=== PATIENT | male | born 1980 | race African-American/Black ===

== ENCOUNTER → 2018-09-15 | Outpatient (CLI) | payer OTHER ==
--- NOTE | 2018-09-15 17:16 | XR ---
Lumbosacral spine HISTORY: Low back pain 5 views of the lumbosacral spine Lumbar vertebral bodies show preserved height, alignment, and bone mineralization. There is no eviden t spondylolysis or spondylolisthesis. Loss of disc height L4-5, L2-3. Anterior wedging T12 is mild. S clerosis present in the posterior elements of the lower lumbar spine. IMPRESSION: Degenerative disc disease and facet arthropathy. Anterior wedge compression deformity of T12 of questionable age, significance. Bone scan or MRI may be of benefit.
== END | disposition home or self-care (01) ==
LOC: RADXRMAIN 16:03
PROVIDERS: ATTEND Family Medicine
DX: M51.37 Other intervertebral disc degeneration, lumbosacral region (principal); M46.97 Unspecified inflammatory spondylopathy, lumbosacral region
CPT/HCPCS: 72110

== ENCOUNTER → 2018-10-24 | Outpatient (CLI) | payer OTHER | LOC: EDBD 10-23 11:45 → RADMRIMAIN 09:12 | PROVIDERS: ATTEND Family Medicine | DX: Z53.9 Procedure and treatment not carried out, unspecified reason (principal) ==

== ENCOUNTER → 2018-11-19 | Outpatient (CLI) | payer OTHER ==
--- NOTE | 2018-11-20 08:14 | CT ---
EXAMINATION TYPE: CT abdomen pelvis w con DATE OF EXAM: 11/19/2018 COMPARISON: None HISTORY: RUQ pain CT DLP: 3032.8 mGycm CONTRAST: CT scan of the abdomen and pelvis is performed with Oral Contrast and with IV Contrast, patient injec scott with 100 mL of Isovue 300. FINDINGS: LUNG BASES-: No visible nodule. No infiltrate. LIVER/GB: No calcified gallstones. No space occupying hepatic lesion. Biliary tree is of normal ca liber. PANCREAS: No inflammation. No distinct mass. SPLEEN: No splenic enlargement. No lesion seen. ADRENALS: No nodule. No thickening. KIDNEYS/BLADDER: No hydronephrosis. No nephrolithiasis. No distinct renal mass. Urinary bladder g rossly unremarkable. BOWEL: Normal appendix. Normal bowel caliber. No inflammation. GENITAL ORGANS: No gross abnormality. LYMPH NODES: 4 mildly prominent lymph nodes right lower quadrant small bowel mesentery measuring up t o 1.2 cm. 9 mm peripancreatic lymph node identified. AORTA: No significant abnormality. OSSEOUS STRUCTURES: No significant abnormality is seen. OTHER: No significant additional abnormality is seen. IMPRESSION: 1. No significant abnormality to account for the patient's symptoms. 2. Mildly prominent right lower quadrant lymph nodes are nonspecific.
== END | disposition home or self-care (01) ==
LOC: RADCTMAIN 15:11
PROVIDERS: ATTEND Family Medicine
DX: R59.0 Localized enlarged lymph nodes (principal); R10.11 Right upper quadrant pain
CPT/HCPCS: 74177; Q9967

== ENCOUNTER → 2018-12-11 | Outpatient (CLI) | payer OTHER ==
--- NOTE | 2018-12-11 12:13 | XR ---
EXAMINATION TYPE: XR chest 2V DATE OF EXAM: 12/11/2018 COMPARISON: NONE TECHNIQUE: PA and lateral views submitted. HISTORY: Pain FINDINGS: The lungs are clear and there is no pneumothorax, pleural effusion, or focal pneumonia. Positioning is somewhat apical lordotic with hypertrophic change of the spine and degenerative disc disease. IMPRESSION: 1. No acute process.
--- NOTE | 2018-12-11 14:10 | US ---
EXAMINATION TYPE: US abdomen complete DATE OF EXAM: 12/11/2018 COMPARISON: CT 2018 CLINICAL HISTORY: R10.9FLANK PAIN,R10.11 abdominal pain. Intermittent sharp RUQ pain EXAM MEASUREMENTS: Liver Length: 18.6 cm Gallbladder Wall: 0.2 cm CBD: 0.4 cm Spleen: 11.1 cm Right Kidney: 11.1 x 6.3 x 6.0 cm Left Kidney: 12.0 x 6.4 x 6.4 cm Difficult and limited study due to patient body habitus Pancreas: obscured by overlying midline bowel gas Liver: enlarged, heterogeneous, attenuating Gallbladder: wnl Evidence for sonographic Boyce's sign: no CBD: visualized portions wnl, limited by overlying bowel gas Spleen: wnl Right Kidney: wnl Left Kidney: wnl Upper IVC: wnl Abd Aorta: visualized portions wnl, limited by overlying midline bowel gas Kidneys show normal cortical medullary differentiation. No ascites. The liver is poorly penetrated by the ultrasound. The intrahepatic portion of the IVC and proximal a bdominal aorta are within normal limits. There is no evidence of cholelithiasis. Common bile duct i s unremarkable. The visualized portions of the pancreas are homogenous. The spleen is unremarkable. Kidneys are symmetric and free of hydronephrosis. No renal lesions are seen. IMPRESSION: Somewhat limited exam. Probable hepatic steatosis. Suspect hepatomegaly.
== END | disposition home or self-care (01) ==
LOC: RADUSWWP 10:46
PROVIDERS: ATTEND Family Medicine
DX: R10.11 Right upper quadrant pain (principal); R10.9 Unspecified abdominal pain
CPT/HCPCS: 71046; 76700

== ENCOUNTER → 2019-12-29 | Outpatient (CLI) | payer OTHER ==
--- NOTE | 2019-12-29 21:16 | XR ---
EXAMINATION TYPE: XR lumbar spine 2 or 3V DATE OF EXAM: 12/29/2019 CLINICAL HISTORY: Low back pain. TECHNIQUE: Frontal and lateral images of the lumbar spine are obtained. COMPARISON: Lumbar spine x-ray September 15, 2018 FINDINGS: There are 5 lumbar type vertebral bodies redemonstrated. There is redemonstration of mild anterior wedging T11 and T12 vertebra with mild to moderate anterior spurring. Mild to moderate disc space narrowing L4-L5 level slightly more prominent from prior study. Alignment stable and satisfacto ry. Overlying soft tissue is unremarkable. IMPRESSION: As above.
--- NOTE | 2019-12-29 21:20 | XR ---
EXAMINATION TYPE: XR Hip Bilateral Complete, XR femur bilateral DATE OF EXAM: 12/29/2019 CLINICAL HISTORY: Bilateral hip and femur pain. TECHNIQUE: AP and frogleg views of the bilateral hips and femurs are obtained. COMPARISON: None. FINDINGS: There is no acute fracture/dislocation evident in either hip. The joint space in the bila teral hips are maintained with mild spurring superior lateral aspect bilaterally. Right hip shows a 11 mm linear shaped bony fragment without donor site could reflect heterotopic ossification or produc t of old trauma. No suspicious focal osseous lesion bilaterally. The overlying soft tissue appears un remarkable bilaterally. 2 views of bilateral femurs show mild to moderate joint space loss and spurring medial and lateral ti biofemoral compartments in the bilateral knees most prominent right medial tibiofemoral compartment. Patellofemoral compartments are maintained bilaterally. Bilateral large posterior oval bony densities or probable multiple fabellas. Remainder of bilateral femurs shows no fracture or dislocation or esther picious lytic or sclerotic lesions. Overlying soft tissue is unremarkable bilaterally. IMPRESSION: As above.
== END | disposition home or self-care (01) ==
LOC: RAD 17:18
PROVIDERS: ATTEND Family Medicine
DX: M99.73 Connective tissue and disc stenosis of intervertebral foramina of lumbar region (principal); M76.9 Unspecified enthesopathy, lower limb, excluding foot
CPT/HCPCS: 72100; 73521

== ENCOUNTER 2023-09-07 21:52 | Emergency (ER) | payer OTHER ==
[2023-09-07 22:20] VITALS: BP 155/93; PULSE 86; RESP 18; TEMP 98.5
--- NOTE | 2023-09-07 23:16 | ED ---
General Adult HPI - General Chief complaint: Recheck/Abnormal Lab/Rx Stated complaint: COVID Test Time Seen by Provider: 09/07/23 21:55 Source: patient, RN notes reviewed, old records reviewed Mode of arrival: ambulatory Limitations: no limitations - History of Present Illness Initial comments: 43-year-old male presenting with request for coronavirus test. Patient states he's been exposed to several people at his work with coronavirus. He denies symptoms. Requesting test. - Related Data Allergies Allergy/AdvReac Type Severity Reaction Status Date / Time No Known Allergies Allergy Verified 09/07/23 22:04 Review of Systems ROS Statement: Those systems with pertinent positive or pertinent negative responses have been documented in the HPI. ROS Other: All systems not noted in ROS Statement are negative. Past Medical History Past Medical History: Hyperlipidemia, Hypertension History of Any Multi-Drug Resistant Organisms: None Reported Past Surgical History: No Surgical Hx Reported Past Psychological History: No Psychological Hx Reported Smoking Status: Never smoker Past Alcohol Use History: Occasional Past Drug Use History: Marijuana General Exam Limitations: no limitations General appearance: alert, in no apparent distress Head exam: Present: atraumatic, normocephalic Eye exam: Present: normal appearance, PERRL ENT exam: Present: normal exam Neck exam: Present: normal inspection. Absent: tenderness, meningismus Respiratory exam: Present: normal lung sounds bilaterally. Absent: respiratory distress, wheezes Cardiovascular Exam: Present: regular rate, normal rhythm GI/Abdominal exam: Present: soft. Absent: distended, tenderness, guarding Extremities exam: Present: normal inspection, normal capillary refill. Absent: pedal edema Neurological exam: Present: alert, oriented X3, CN II-XII intact, normal gait. Absent: motor sensory deficit Psychiatric exam: Present: normal affect, normal mood Skin exam: Present: warm, dry, intact. Absent: cyanosis, diaphoretic Course Vital Signs 09/07/23 22:03 Temperature 98.5 F Pulse Rate 86 Respiratory 18 Rate Blood Pressure 155/93 O2 Sat by Pulse 99 Oximetry Medical Decision Making - Medical Decision Making Was pt. sent in by a medical professional or institution (, PA, COMMUNITY DEVELOPMENT COORDINATOR, urgent care, hospital, or correction...) When possible be specific @ -No Did you speak to anyone other than the patient for history (EMS, parent, family, police, friend...)? What history was obtained from this source @ -No Did you review nursing and triage notes (agree or disagree)? Why? @ -I reviewed and agree with nursing and triage notes Were old charts reviewed (outside hosp., previous admission, EMS record, old EKG, old radiological studies, urgent care reports/EKG's, correction records)? Report findings @ -No old charts were reviewed Differential Diagnosis (chest pain, altered mental status, abdominal pain women, abdominal pain men, vaginal bleeding, weakness, fever, dyspnea, syncope, headache, dizziness, GI bleed, back pain, seizure, CVA, palpatations, mental health, musculoskeletal)? @Coronavirus testing EKG interpreted by me (3pts min.). @ -As above X-rays interpreted by me (1pt min.). @ -None done CT interpreted by me (1pt min.). @ -None done U/S interpreted by me (1pt. min.). @ -None done What testing was considered but not performed or refused? (CT, X-rays, U/S, labs)? Why? @ -None What meds were considered but not given or refused? Why? @ -None Did you discuss the management of the patient with other professionals (professionals i.e. , PA, COMMUNITY DEVELOPMENT COORDINATOR, lab, RT, psych nurse, social director, top executive, teacher, aoc operations intelligence officer, case management assistant)? Give summary @ -No Was smoking cessation discussed for >3mins.? @ -No Was critical care preformed (if so, how long)? @ -No Were there social determinants of health that impacted care today? How? (Homele ssness, low income, unemployed, alcoholism, drug addiction, transportation, low edu. Level, literacy, decrease access to med. care, custodial, rehab)? @ -No Was there de-escalation of care discussed even if they declined (Discuss DNR or withdrawal of care, Hospice)? DNR status @ -No What co-morbidities impacted this encounter? (DM, HTN, Smoking, COPD, CAD, Cancer, CVA, ARF, Chemo, Hep., AIDS, mental health diagnosis, sleep apnea, morbid obesity)? @ -None Was patient admitted / discharged? Hospital course, mention meds given and route, prescriptions, significant lab abnormalities, going to OR and other pertinent info. @ -Asymptomatic 43-year-old male with request for coronavirus testing. Test is negative. Undiagnosed new problem with uncertain prognosis? @ -No Drug Therapy requiring intensive monitoring for toxicity (Heparin, Nitro, Insulin, Cardizem)? @ -No Were any procedures done? @ -No Diagnosis/symptom? @ -Well exam Acute, or Chronic, or Acute on Chronic? @ -Acute Uncomplicated (without systemic symptoms) or Complicated (systemic symptoms)? @ -default Side effects of treatment? @ -No Exacerbation, Progression, or Severe Exacerbation? @ -No Poses a threat to life or bodily function? How? (Chest pain, [place], [place], pneumonia, PE, COPD, DKA, ARF, appy, cholecystitis, CVA, Diverticulitis, Homicidal, Suicidal, threat to staff... and all critical care pts) @ -No Disposition Clinical Impression: Well adult exam Disposition: HOME SELF-CARE Condition: Good Additional Instructions: Your coronavirus testing is negative. Is patient prescribed a controlled substance at d/c from ED?: No Referrals: Hayde Valdovinos MD [Primary Care Provider] - 1-2 days Time of Disposition: 23:16
== END 2023-09-07 23:37 | disposition home or self-care (01) ==
LOC: EC 21:52
DX: Z00.00 Encounter for general adult medical examination without abnormal findings (principal); I10 Essential (primary) hypertension; F12.90 Cannabis use, unspecified, uncomplicated; Z20.822 Contact with and (suspected) exposure to COVID-19
CPT/HCPCS: 87635; 99283

== ENCOUNTER 2024-04-23 23:17 | Emergency (ER) | payer OTHER ==
[2024-04-24 01:15] VITALS: TEMP 98
[2024-04-24] MEDS: AMOXIC-POT CLAV 875-125MG 1 EACH TAB PO STA (01:30)
[2024-04-24] MEDS: KETOROLAC 15 MG/ML 1 ML VIAL IM STA (01:30)
[2024-04-24] MEDS: SULFAMETHOX-TMP 800-160MG 1 EACH TAB PO STA (01:30)
[2024-04-24] MEDS: ACETAMINOPHEN TAB 500 MG TAB PO STA (01:30)
--- NOTE | 2024-04-24 02:21 | ED ---
Eye Problem HPI - General Chief complaint: Eye Problems Stated complaint: Left eye pain Time Seen by Provider: 04/23/24 23:44 Source: patient Mode of arrival: ambulatory Limitations: no limitations - History of Present Illness Initial comments: 43-year-old male presented to the ED with complaints of left eye pain. Patient reports that this has been going on for the past week. However tonight pain worse especially with eye movements. No fever or chills. Denies loss of vision. No chest pain or shortness of breath. Does not wear contacts. No othe r complaints at this time. - Related Data Previous Rx's Medication Instructions Recorded Acetaminophen Tab [Tylenol] 500 mg PO Q6H #30 tablet 04/24/24 Amoxic-Pot Clav 875-125Mg 1 tab PO Q12HR 7 Days #14 tab 04/24/24 [Augmentin 875-125] Ibuprofen [Motrin] 800 mg PO Q6HR #30 tab 04/24/24 Sulfamethox-Tmp 800-160Mg [Bactrim 1 each PO Q12HR 7 Days #14 tab 04/24/24 Ds] Allergies Allergy/AdvReac Type Severity Reaction Status Date / Time No Known Allergies Allergy Verified 04/23/24 23:31 Review of Systems ROS Statement: Those systems with pertinent positive or pertinent negative responses have been documented in the HPI. ROS Other: All systems not noted in ROS Statement are negative. Past Medical History Past Medical History: Hyperlipidemia, Hypertension History of Any Multi-Drug Resistant Organisms: None Reported Past Surgical History: No Surgical Hx Reported Past Psychological History: No Psychological Hx Reported Smoking Status: Never smoker Past Alcohol Use History: Occasional Past Drug Use History: Marijuana General Exam Limitations: no limitations General appearance: alert, in no apparent distress Eye exam: Present: periorbital swelling, periorbital tenderness, other (Left eye shows intact extraocular motions however patient does report pain on extraocular motions. No entrapment. Does show some proptosis.) Respiratory exam: Present: normal lung sounds bilaterally Cardiovascular Exam: Present: regular rate GI/Abdominal exam: Present: soft Neurological exam: Present: alert, oriented X3 Skin exam: Present: warm, dry Course Vital Signs 04/23/24 23:29 Temperature 98 F Pulse Rate 90 Respiratory 18 Rate Blood Pressure 166/95 O2 Sat by Pulse 99 Oximetry Medical Decision Making - Medical Decision Making was pt. sent in by a medical professional or institution (JINNY Wilder, BENCH BORING MACHINE OPERATOR, urgent care, hospital, or retirement...) When possible be specific @ -No Did you speak to anyone other than the patient for history (EMS, parent, family, police, friend...)? What history was obtained from this source @ -No Did you review nursing and triage notes (agree or disagree)? Why? @ -I reviewed and agree with nursing and triage notes Were old charts reviewed (outside hosp., previous admission, EMS record, old EKG, old radiological studies, urgent care reports/EKG's, retirement records)? Report findings @ -No old charts were reviewed Differential Diagnosis (chest pain, altered mental status, abdominal pain women, abdominal pain men, vaginal bleeding, weakness, fever, dyspnea, syncope, he adache, dizziness, GI bleed, back pain, seizure, CVA, palpatations, mental health, musculoskeletal)? @ -Periorbital cellulitis, orbital cellulitis, cellulitis. This not meant to be an all-inclusive list. EKG interpreted by me (3pts min.). @ -None X-rays interpreted by me (1pt min.). @ -None done CT interpreted by me (1pt min.). @ -None done U/S interpreted by me (1pt. min.). @ -None done What testing was considered but not performed or refused? (CT, X-rays, U/S, labs)? Why? @ -Labs and imaging were considered however at this time patient would not like to have any further testing done. What meds were considered but not given or refused? Why? @ -None Did you discuss the management of the patient with other professionals (professionals i.e. JINNY Wilder, BENCH BORING MACHINE OPERATOR, lab, RT, psych nurse, social work lecturer, staff field engineer, teacher, medical officer psychiatry, pillowcase folder)? Give summary @ -No Was smoking cessation discussed for >3mins.? @ -No Was critical care preformed (if so, how long)? @ -No Were there social determinants of health that impacted care today? How? (Homelessness, low income, unemployed, alcoholism, drug addiction, transportation, low edu. Level, literacy, decrease access to med. care, halfway, rehab)? @ -No Was there de-escalation of care discussed even if they declined (Discuss DNR or withdrawal of care, Hospice)? DNR status @ -No What co-morbidities impacted this encounter? (DM, HTN, Smoking, COPD, CAD, Cancer, CVA, ARF, Chemo, Hep., AIDS, mental health diagnosis, sleep apnea, morbid obesity)? @ -None Was patient admitted / discharged? Hospital course, mention meds given and route, prescriptions, significant lab abnormalities, going to OR and other pertinent info. @ -Discharge 43-year-old male presenting to the ED with complaints of left eye pain and swelling for the past week however worsening tonight especially having pain with eye movements. No visual losses. Patient declined visual acuity. I am concerned of an orbital cellulitis. However at this time patient would not like to have CT testing or laboratory studies performed. He would like antibiotics and to be discharged home. Discussed risk and benefits of this and patient would still like to have no further testing done. Discharged home in stable condition. Provided first dose of Augmentin and Bactrim here. Provided starter packs for Augmentin and Bactrim and provided prescriptions for Augmentin, Bactrim, Motrin, Tylenol. Also provided referral to see ophthalmology. Discussed tricked return precautions with patient who verbalized agreement. Undiagnosed new problem with uncertain prognosis? @ -No Drug Therapy requiring intensive monitoring for toxicity (Heparin, Nitro, Insulin, Cardizem)? @ -No Were any procedures done? @ -No Diagnosis/symptom? @ -Periorbital Cellulitis Acute, or Chronic, or Acute on Chronic? @ -Acute Uncomplicated (without systemic symptoms) or Complicated (systemic symptoms)? @ -Complicated Side effects of treatment? @ -No Exacerbation, Progression, or Severe Exacerbation? @ -No Poses a threat to life or bodily function? How? (Chest pain, [place], [place], pneumonia, PE, COPD, DKA, ARF, appy, cholecystitis, CVA, Diverticulitis, Homicidal, Suicidal, threat to staff... and all critical care pts) @ -Possibly Disposition Clinical Impression: Periorbital cellulitis of left eye Disposition: HOME SELF-CARE Condition: Good Instructions (If sedation given, give patient instructions): Periorbital Cellulitis in Adults (ED) Additional Instructions: Please return to the Emergency Department if symptoms worsen or any other concerns. Please take antibiotics as prescribed. Follow-up with ophthalmology within the next few days. Prescriptions: Amoxic-Pot Clav 875-125Mg [Augmentin 875-125] 1 tab PO Q12HR 7 Days #14 tab Sulfamethox-Tmp 800-160Mg [Bactrim Ds] 1 each PO Q12HR 7 Days #14 tab Ibuprofen [Motrin] 800 mg PO Q6HR #30 tab Acetaminophen Tab [Tylenol] 500 mg PO Q6H #30 tablet Is patient prescribed a controlled substance at d/c from ED?: No Referrals: Hayde Valdovinos MD [Primary Care Provider] - 1-2 days Sunita Saleh MD [STAFF PHYSICIAN] - 1-2 days Hemanth Laird MD [STAFF PHYSICIAN] - 1-2 days Time of Disposition: 02:28
[2024-04-24] MEDS: AMOXIC-POT CLAV 875MG STARTER PACK 2 TAB BTL PO STA (02:32)
[2024-04-24] MEDS: SULFAMETH-TMP DS STARTER PACK 2 TAB BTL PO STA (02:32)
[2024-04-24 03:05] VITALS: BP 146/81; PULSE 81; RESP 20
== END 2024-04-24 02:40 | disposition home or self-care (01) ==
LOC: EC 23:17
DX: L03.213 Periorbital cellulitis (principal); F12.90 Cannabis use, unspecified, uncomplicated
CPT/HCPCS: 99283; 96372; J1885

== ENCOUNTER 2024-04-26 18:36 | Emergency (ER) | payer OTHER ==
--- NOTE | 2024-04-26 18:57 | ED ---
Recheck HPI - General Chief Complaint: Eye Problems Stated Complaint: L Eye Problem Source: patient, RN notes reviewed, old records reviewed Mode of arrival: ambulatory Limitations: no limitations - History of Present Illness Initial Comments: This is a 43-year-old male to the ER for evaluation today. Patient is severely upset course of treatment recent diagnosis of eye infection given oral antibiotics with no improvement. Patient states he is taking these oral antibiotics as directed he is here today because he did not get eyedrops for his eye. Patient has severe pain in his left eye noticed vision changes and no pain to touch MD Complaint: other -: days(s) Returns Today for: persistent/worsening pain related to initial visit Context: planned re-check Associated Symptoms: none Treatments Prior to Arrival: other (0) - Related Data Previous Rx's Medication Instructions Recorded Acetaminophen Tab [Tylenol] 500 mg PO Q6H #30 tablet 04/24/24 Amoxic-Pot Clav 875-125Mg 1 tab PO Q12HR 7 Days #14 tab 04/24/24 [Augmentin 875-125] Ibuprofen [Motrin] 800 mg PO Q6HR #30 tab 04/24/24 Sulfamethox-Tmp 800-160Mg [Bactrim 1 each PO Q12HR 7 Days #14 tab 04/24/24 Ds] Allergies Allergy/AdvReac Type Severity Reaction Status Date / Time No Known Allergies Allergy Verified 04/23/24 23:31 Review of Systems ROS Statement: Those systems with pertinent positive or pertinent negative responses have been documented in the HPI. ROS Other: All systems not noted in ROS Statement are negative. Past Medical History Past Medical History: Hyperlipidemia, Hypertension History of Any Multi-Drug Resistant Organisms: None Reported Past Surgical History: No Surgical Hx Reported Past Psychological History: No Psychological Hx Reported Smoking Status: Never smoker Past Alcohol Use History: Occasional Past Drug Use History: Marijuana General Exam Limitations: no limitations General appearance: alert, in no apparent distress Head exam: Present: atraumatic, normocephalic, normal inspection Eye exam: Present: normal appearance, PERRL, EOMI, conjunctival injection, periorbital swelling. Absent: scleral icterus ENT exam: Present: normal exam, mucous membranes moist Neck exam: Present: normal inspection. Absent: tenderness, meningismus, lymphadenopathy Respiratory exam: Present: normal lung sounds bilaterally. Absent: respiratory distress, wheezes, rales, rhonchi, stridor Cardiovascular Exam: Present: regular rate, normal rhythm, normal heart sounds. Absent: systolic murmur, diastolic murmur, rubs, gallop, clicks GI/Abdominal exam: Present: soft, normal bowel sounds. Absent: distended, tenderness, guarding, rebound, rigid Extremities exam: Present: normal inspection, full ROM, normal capillary refill. Absent: tenderness, pedal edema, joint swelling, calf tenderness Back exam: Present: normal inspection Neurological exam: Present: alert, oriented X3, CN II-XII intact Psychiatric exam: Present: normal affect, normal mood Skin exam: Present: warm, dry, intact, normal color. Absent: rash Course Vital Signs 04/26/24 18:38 Temperature 98.4 F Pulse Rate 83 Respiratory 20 Rate Blood Pressure 167/93 O2 Sat by Pulse 98 Oximetry - Reevaluation(s) Reevaluation #1: 04/26/24 18:56 Record is reviewed Reevaluation #2: 04/26/24 18:56 Patient symptoms unchanged Reevaluation #3: 04/26/24 18:56 Patient informed of results questions answered Reevaluation #4: Was pt. sent in by a medical professional or institution (, PA, DYNAMITER, urgent care, hospital, or fdc...) When possible be specific @ -no Did you speak to anyone other than the patient for history (EMS, parent, family, police, friend...)? What history was obtained from this source @ -no Did you review nursing and triage notes (agree or disagree)? Why? @ -agree Are old charts reviewed (outside hosp., previous admission, EMS record, old EKG, old radiological studies, urgent care reports/EKG's, fdc records)? Report findings @ -yes Differential Diagnosis (chest pain, altered mental status, abdominal pain women, abdominal pain men, vaginal bleeding, weakness, fever, dyspnea, syncope, headache, dizziness, GI bleed, back pain, seizure, CVA, palpatations, mental health, musculoskeletal)? @ -prior EKG interpreted by me (3pts min.). @ -no X-rays interpreted by me (1pt min.). @ -no CT interpreted by me (1pt min.). @ -no U/S interpreted by me (1pt. min.). @ -no What testing was considered but not performed or refused? (CT, X-rays, U/S, labs)? Why? @ -none What meds were considered but not given or refused? Why? @ -none Did you discuss the management of the patient with other professionals (professionals i.e. , PA, DYNAMITER, lab, RT, psych nurse, clinical social work therapist, trash man, teacher, commanding officer traffic division, home health care case manager)? Give summary @ -no Was smoking cessation discussed for >3mins.? @ -no Was critical care preformed (if so, how long)? @ -no Were there social determinants of health that impacted care today? How? (Homelessness, low income, unemployed, alcoholism, drug addiction, transportation, low edu. Level, literacy, decrease access to med. care, fdc, rehab)? @ -none Was there de-escalation of care discussed even if they declined (Discuss DNR or withdrawal of care, Hospice)? DNR status @ -no What co-morbidities impacted this encounter? (DM, HTN, Smoking, COPD, CAD, Cancer, CVA, ARF, Chemo, Hep., AIDS, mental health diagnosis, sleep apnea, morbid obesity)? @ -none Was patient admitted / discharged? Hospital course, mention meds given and route, prescriptions, significant lab abnormalities, going to OR and other pertinent info. @ - 43 male to ER for evaluation of bacterial conjunctivitis of the left eye. Patient placed on antibiotic drops and can be discharged home Discharge Undiagnosed new problem with uncertain prognosis? @ -no Drug Therapy requiring intensive monitoring for toxicity (Heparin, Nitro, Insulin, Cardizem)? @ -no Were any procedures done? @ -no Diagnosis/symptom? @ -Cellulitis of the left eye periorbital cellulitis with bacterial conjunctivitis Acute, or Chronic, or Acute on Chronic? @ -Acute Uncomplicated (without systemic symptoms) or Complicated (systemic symptoms)? @ -Complicated Side effects of treatment? @ -no Exacerbation, Progression, or Severe Exacerbation? @ -exacerbation Poses a threat to life or bodily function? How? (Chest pain, [place], [place], pneumonia, PE, COPD, DKA, ARF, appy, cholecystitis, CVA, Diverticulitis, Homicidal, Suicidal, threat to staff... and all critical care pts) @ -yes significant cellulitis conjunctivitis of the left eye Medical Decision Making - Medical Decision Making 43 male to ER for evaluation of bacterial conjunctivitis of the left eye. Patient placed on antibiotic drops and can be discharged home Disposition Clinical Impression: Bacterial conjunctivitis, Periorbital cellulitis of left eye Disposition: HOME SELF-CARE Condition: Undetermined Instructions (If sedation given, give patient instructions): Conjunctivitis (ED), Periorbital Cellulitis in Adults (ED) Is patient prescribed a controlled substance at d/c from ED?: No Referrals: Hayde Valdovinos MD [Primary Care Provider] - 1-2 days Time of Disposition: 19:00
[2024-04-26 19:15] VITALS: BP 167/93; PULSE 83; RESP 20; TEMP 98.4
[2024-04-26] MEDS: POLYMYXIN B-TRIMETHOPRIM SULF (10,000-1) OPHTH DROPS 10 ML BTL LEFT EYE STA (19:35)
== END 2024-04-26 19:43 | disposition home or self-care (01) ==
LOC: EC 18:36
DX: L03.213 Periorbital cellulitis (principal); H10.89 Other conjunctivitis
CPT/HCPCS: 99283

== ENCOUNTER → 2024-05-10 | Outpatient (CLI) | payer OTHER ==
--- NOTE | 2024-05-10 10:19 | XR ---
EXAMINATION TYPE: XR chest 2V DATE OF EXAM: 05/10/2024 COMPARISON: 12/11/2018 HISTORY: Chest pain TECHNIQUE: Frontal and lateral views of the chest are obtained. FINDINGS: There is no focal air space opacity. No evidence for pneumothorax. No pleural effusion. The cardiac silhouette size is within normal limits. The osseous structures are grossly intact. IMPRESSION: 1. No acute cardiopulmonary process.
[2024-05-10 19:16] LABS: Rheumatoid Factor, Qnt 15 IU/mL (0-15)
[2024-05-10 19:57] LABS: Hepatitis A Antibody IgM Nonreactive (Nonreactive); Hepatitis B Core IgM Nonreactive (Nonreactive); Hepatitis B Surface Antigen Nonreactive (Nonreactive); Hepatitis C IgG Antibody Nonreactive (Nonreactive)
[2024-05-10 21:15] LABS: HIV 2 AB Non-Reactive (Non-Reactive); HIV AB P24 Non-Reactive (Non-Reactive); HIV P24 AG Non-Reactive (Non-Reactive)
[2024-05-11 08:34] LABS: HLA B27 NEGATIVE
[2024-05-11 09:02] LABS: Angiotensin-1 Converting Enz. 13 U/L (8-52)
[2024-05-11 14:23] LABS: C-ANCA <1:20 Titer (<1:20)
== END | disposition home or self-care (01) ==
LOC: RADXRMAIN 09:35
PROVIDERS: ATTEND Ophthalmology
DX: D86.9 Sarcoidosis, unspecified (principal)
CPT/HCPCS: 71046; 80074; 82164; 85549; 85652; 86038; 86140; 86255; 86431; 86618; 86780; 86812; 87390

== ENCOUNTER 2024-12-19 11:40 | Emergency (ER) | payer OTHER ==
--- NOTE | 2024-12-19 12:03 | ED ---
Back Pain HPI - General Chief Complaint: Back Pain/Injury Stated Complaint: back pain Time Seen by Provider: 12/19/24 11:48 Source: patient Limitations: no limitations - History of Present Illness Initial Comments: 44-year-old male presenting with chief complaint of lower back pain. Pain is primarily on the right side of the lower back. He does have some radiation down the leg and around the hip as well. He states that he did strain his back about 2 weeks ago, and then the other day he started to slip and caught himself and this aggravated the pain in his back. No loss of bowel or bladder control or saddle paresthesia. He has been smoking marijuana for pain control and this has been less effective recently. He does have some pain on the side of his abdomen. No dysuria or hematuria. No fevers or chills. No nausea or vomiting. - Related Data Previous Rx's Medication Instructions Recorded Acetaminophen Tab [Tylenol] 500 mg PO Q6H #30 tablet 04/24/24 Amoxic-Pot Clav 875-125Mg 1 tab PO Q12HR 7 Days #14 tab 04/24/24 [Augmentin 875-125] Ibuprofen [Motrin] 800 mg PO Q6HR #30 tab 04/24/24 Sulfamethox-Tmp 800-160Mg [Bactrim 1 each PO Q12HR 7 Days #14 tab 04/24/24 Ds] Cyclobenzaprine [Flexeril] 10 mg PO TID PRN #15 tab 12/19/24 Allergies Allergy/AdvReac Type Severity Reaction Status Date / Time No Known Allergies Allergy Verified 12/19/24 11:44 Review of Systems ROS Statement: Those systems with pertinent positive or pertinent negative responses have been documented in the HPI. ROS Other: All systems not noted in ROS Statement are negative. Past Medical History Past Medical History: Hyperlipidemia, Hypertension History of Any Multi-Drug Resistant Organisms: None Reported Past Surgical History: No Surgical Hx Reported Past Psychological History: No Psychological Hx Reported Smoking Status: Vaper Past Alcohol Use History: Occasional Past Drug Use History: Marijuana General Exam Limitations: no limitations General appearance: alert, in no apparent distress Head exam: Present: atraumatic, normocephalic, normal inspection Eye exam: Present: normal appearance, EOMI Neck exam: Present: normal inspection. Absent: meningismus Respiratory exam: Absent: respiratory distress Cardiovascular Exam: Present: regular rate Back exam: Present: normal inspection, paraspinal tenderness Neurological exam: Present: alert, oriented X3 Psychiatric exam: Present: normal affect, normal mood Skin exam: Present: warm, dry Course Vital Signs 12/19/24 12/19/24 11:42 14:23 Temperature 98.3 F 98.1 F Pulse Rate 96 75 Respiratory 16 18 Rate Blood Pressure 125/88 126/84 O2 Sat by Pulse 98 97 Oximetry Medical Decision Making - Medical Decision Making Was pt. sent in by a medical professional or institution (, PA, FLORIST HELPER, urgent care, hospital, or snf...) When possible be specific @ -No Did you speak to anyone other than the patient for history (EMS, parent, family, police, friend...)? What history was obtained from this source @ -No Did you review nursing and triage notes (agree or disagree)? Why? @ -I reviewed and agree with nursing and triage notes Were old charts reviewed (outside hosp., previous admission, EMS record, old EKG, old radiological studies, urgent care reports/EKG's, snf records)? Report findings @ -No old charts were reviewed Differential Diagnosis (chest pain, altered mental status, abdominal pain women, abdominal pain men, vaginal bleeding, weakness, fever, dyspnea, syncope, headache, dizziness, GI bleed, back pain, seizure, CVA, palpatations, mental health, musculoskeletal)? @ - MDM Differential Back Pain: Strain, zoster, cauda equina syndrome, epidural abscess, vertebral osteomyelitis, discitis, fracture, subluxation, disc herniation, DJD, spinal stenosis, dissection, AAA, pancreatitis, peptic ulcer disease, pyelonephritis, kidney stone this is not meant to be an all-inclusive list. EKG interpreted by me (3pts min.). @ -As above X-rays interpreted by me (1pt min.). @ -X-ray shows no acute fracture. Mild multilevel disc degeneration. Grade 1 anterolisthesis of L4 and L5. Wedging of the vertebral bodies at T11-T12 which is similar to prior in 2019 CT interpreted by me (1pt min.). @ -None done U/S interpreted by me (1pt. min.). @ -None done What testing was considered but not performed or refused? (CT, X-rays, U/S, labs)? Why? @ -None What meds were considered but not given or refused? Why? @ -None Did you discuss the management of the patient with other professionals (professionals i.e. , PA, FLORIST HELPER, lab, RT, psych nurse, child welfare social worker, centerless grinder tender, teacher, guest relation officer, caseworker)? Give summary @ -No Was smoking cessation discussed for >3mins.? @ -No Was critical care preformed (if so, how long)? @ -No Were there social determinants of health that impacted care today? How? (Homelessness, low income, unemployed, alcoholism, drug addiction, transportation, low edu. Level, literacy, decrease access to med. care, usp, rehab)? @ -No Was there de-escalation of care discussed even if they declined (Discuss DNR or withdrawal of care, Hospice)? DNR status @ -No What co-morbidities impacted this encounter? (DM, HTN, Smoking, COPD, CAD, Cancer, CVA, ARF, Chemo, Hep., AIDS, mental health diagnosis, sleep apnea, morbid obesity)? @ -None Was patient admitted / discharged? Hospital course, mention meds given and route, prescriptions, significant lab abnormalities, going to OR and other pe rtinent info. @ -44-year-old male presenting with chief complaint of lower back pain. No red flag symptoms. Urine shows no infectious process or bleeding. X-ray shows degenerative disc disease without acute process. On reassessment after analgesia patient reports improvement in his symptoms. He is educated on today's findings and treatment plan. Follow-up with PCP. Report back to ER with any new or worsening symptoms. Discussed return parameters and answered all questions. Patient conveyed verbal understanding and agreed to the plan. I discussed this case in detail with my attending Dr. Childers Undiagnosed new problem with uncertain prognosis? @ -No Drug Therapy requiring intensive monitoring for toxicity (Heparin, Nitro, Insulin, Cardizem)? @ -No Were any procedures done? @ -No Diagnosis/symptom? @ -Strain of lumbar region Acute, or Chronic, or Acute on Chronic? @ -Acute Uncomplicated (without systemic symptoms) or Complicated (systemic symptoms)? @ -Uncomplicated Side effects of treatment? @ -No Exacerbation, Progression, or Severe Exacerbation? @ -No Poses a threat to life or bodily function? How? (Chest pain, [place], [place], pneumonia, PE, COPD, DKA, ARF, appy, cholecystitis, CVA, Diverticulitis, Homicidal, Suicidal, threat to staff... and all critical care pts) @ -Low likelihood - Lab Data Lab Results 12/19/24 Range/Units 12:16 Urine Color Light Yellow Urine Appearance Clear (Clear) Urine pH 5.5 (5.0-8.0) Ur Specific [place] 1.025 (1.001-1.035) Urine Protein Trace H (Negative) Urine Glucose (UA) Negative (Negative) Urine Ketones Negative (Negative) Urine Blood Negative (Negative) Urine Nitrite Negative (Negative) Urine Bilirubin Negative (Negative) Urine Urobilinogen <2.0 (<2.0) mg/dL Ur Leukocyte Esterase Negative (Negative) Disposition Clinical Impression: Strain of lumbar region Disposition: HOME SELF-CARE Condition: Good Instructions (If sedation given, give patient instructions): Acute Low Back Pain (ED) Additional Instructions: Follow-up with your PCP. Report back to ER with any new or worsening symptoms. Take medication as prescribed, do not take cyclobenzaprine before driving or operating heavy machinery as it may cause drowsiness. Take Motrin and Tylenol as needed Prescriptions: Cyclobenzaprine [Flexeril] 10 mg PO TID PRN #15 tab PRN Reason: Spasms Is patient prescribed a controlled substance at d/c from ED?: No Referrals: Hayde Valdovinos MD [Primary Care Provider] - 1-2 days Time of Disposition: 14:18
[2024-12-19] MEDS: LIDOCAINE 4% PATCH TOPICAL ONE (12:06)
[2024-12-19] MEDS: ORPHENADRINE 30 MG/ML 2 ML VIAL IM STA (12:06)
[2024-12-19] MEDS: DEXAMETHASONE SOD PHOSPHATE 10 MG/ML 1 ML VIAL IM STA (12:06)
[2024-12-19] MEDS: KETOROLAC 15 MG/ML 1 ML VIAL IM STA (12:07)
[2024-12-19 12:34] LABS: Appearance,Urine Clear (Clear); Bilirubin,Urine Negative (Negative); Blood,Urine Negative (Negative); Color,Urine Light Yellow; Glucose,Urine (UA) Negative (Negative); Ketones,Urine Negative (Negative); Leukocyte Esterase,Urine Negative (Negative); Nitrite,Urine Negative (Negative); PH, Urine 5.5 (5.0-8.0); Protein,Urine Trace (Negative); Specific Gravity,Urine 1.025 (1.001-1.035); Urobilinogen,Urine <2.0 mg/dL (<2.0)
--- NOTE | 2024-12-19 13:21 | XR ---
EXAMINATION TYPE: XR lumbar spine 2 or 3V DATE OF EXAM: 12/19/2024 12:59 PM COMPARISON: 12/29/2019 CLINICAL INDICATION: Male, 44 years old with history of pain, pain TECHNIQUE: XR lumbar spine 2 or 3V - Frontal, lateral and coned in L5-S1 lateral views of the spine. FINDINGS: No evidence of any acute osseous pathology. There is wedging in the T11 and T12 vertebral b odies with 25% height loss anteriorly. This is similar to prior on 12/29/2019. There is grade 1 perla listhesis of L4 on L5. Alignment of the lumbar vertebral bodies. Scattered disc space narrowing. Mult ilevel marginal osteophyte formation throughout the visualized spine. There is facet joint arthropath y throughout the spine. Scattered at least mild neural foraminal stenosis. IMPRESSION: 1. No acute fracture. 2. Mild multilevel disc degeneration. 3. Grade 1 anterolisthesis of L4 on L5. 4. Wedging of the vertebral bodies at T11-T12 which is similar to prior in 2019. [facility], , 12/19/2024 1:18 PM
[2024-12-19] MEDS: HYDROcodone/APAP 7.5-325MG 1 EACH TAB PO ONE (13:52)
[2024-12-19] MEDS: MORPHINE SULFATE 4 MG/ML SYRINGE IM STA (13:53)
[2024-12-19 14:26] VITALS: BP 126/84; PULSE 75; RESP 18; TEMP 98.1
== END 2024-12-19 14:26 | disposition home or self-care (01) ==
LOC: EC 11:40
DX: S39.012A Strain of muscle, fascia and tendon of lower back, initial encounter (principal); F17.290 Nicotine dependence, other tobacco product, uncomplicated; X50.0XXA Overexertion from strenuous movement or load, initial encounter
CPT/HCPCS: 81003; 72100; 99283; 96372 ×3; J1100; J2360; J1885

== ENCOUNTER → 2025-01-04 | Outpatient (CLI) | payer OTHER ==
--- NOTE | 2025-01-04 12:59 | US ---
EXAMINATION TYPE: US scrotum with doppler. DATE OF EXAM: 01/04/2025 COMPARISON: NONE CLINICAL INDICATION: Male, 44 years old with history of R35.0 FREQUENCY OF MICTURITION N50.819 TESTIC ULAR; Fell 3x two weeks ago. Low back pain and right groin pain with urination which is getting christen r. TECHNIQUE: Grayscale, color Doppler and spectral Doppler imaging of the scrotum. FINDINGS: EXAM MEASUREMENTS: TESTICLES: Right Testicle: 4.4x3.2x2.3 cm Left Testicle: 4.0x2.8x3.2 cm EPIDIDYMIS HEAD: Right Epididymis: 1.0 cm Left Epididymis: 0.9 cm Doppler performed to assess for testicular vascularity; good bilateral color flow and spectral wavefo lizbeth are seen. There is no evidence of testicular torsion. Presence of hydroceles: no Presence of varicoceles: no IMPRESSION: 1. Unremarkable testicular ultrasound. [facility], , 01/04/2025 12:57 PM
== END | disposition home or self-care (01) ==
LOC: RADUSWWP 11:13
PROVIDERS: ATTEND Family Medicine
DX: R35.0 Frequency of micturition (principal); N50.819 Testicular pain, unspecified; M54.50 Low back pain, unspecified; W19.XXXA Unspecified fall, initial encounter
CPT/HCPCS: 76870; 93975